=== PATIENT | male | born 1955 | race Caucasian/White ===

== ENCOUNTER → 2020-03-19 | Outpatient (CLI) | payer OTHER ==
[~2020-03-19] MED LIST: ALBUTEROL INH; APAP500 PO; ASPIRIN EC325 M1 PO; BACTRIM DS TAB1 EACH PO; GLUCOPHAGE500 MG PO; KEFLEX500 MG PO; LISINOPRIL10 MG PO; MUCINEX TA600 MG/TA1 PO; XARELTO10 MG PO
== END ==
LOC: M.CT 11:00
PROVIDERS: ATTEND Internal Medicine Cardiovascular Disease
DX: Z13.6 Encounter for screening for cardiovascular disorders (principal)

== ENCOUNTER 2020-07-14 22:58 | Emergency (ER) | payer MEDICARE ==
[~2020-07-14] VITALS: Ht 172.7 cm; Wt 152.0 kg
[~2020-07-14 22:58] MED LIST changes: +COMBIVENT INH; +LIPITOR10 MG PO; +MELOXICAM15 MG PO; +MULTI VITAMIN1 EACH PO; +SINGULAIR 10 MG10 MG PO
[2020-07-14 23:38] LABS: URINE BILIRUBIN NEGATIVE (Negative); URINE BLOOD 3+ (Negative); URINE CLARITY CLOUDY; URINE COLOR RED; URINE GLUCOSE-RANDOM NEGATIVE (Negative); URINE KETONES NEGATIVE (Negative); URINE NITRITE-REFLEX NEGATIVE (Negative); URINE PROTEIN 2+ (Negative); URINE UROBILINOGEN 0.2 E.U./dl (0.2-1.0)
[2020-07-14 23:39] LABS: URINE LEUKOCYTES-REFLEX 2+ (Negative)
[2020-07-15 00:20] LABS: CASTS None Seen /LPF (None Seen); SQUAMOUS 0-3 Few /LPF (0-3); URINE RBC >20 Many /HPF (0-2); URINE WBC-REFLEX >25 Many /HPF (0-5)
[2020-07-15 00:21] LABS: CRYSTALS None Seen /LPF (None Seen)
[2020-07-15] MEDS ORDERED: HYDROCODON-ACE1 EAC8 PO (00:33)
[2020-07-15] MEDS ORDERED: ZOFRAN ODT4 MG PO (00:33)
[2020-07-15] MEDS ORDERED: PYRIDIUM200 MG PO (00:33)
[2020-07-15] MEDS ORDERED: CIPROFLOXACIN500 M1 PO (00:33)
[2020-07-15 00:50] VITALS: BP 112/73
== END 2020-07-15 00:50 | disposition home or self-care (01) ==
LOC: M.ERS 22:58
PROVIDERS: Emergency Medicine
DX: N39.0 Urinary tract infection, site not specified (principal); M19.90 Unspecified osteoarthritis, unspecified site; I10 Essential (primary) hypertension; E11.9 Type 2 diabetes mellitus without complications; E78.00 Pure hypercholesterolemia, unspecified; Z88.0 Allergy status to penicillin; Z79.899 Other long term (current) drug therapy; Z90.49 Acquired absence of other specified parts of digestive tract

== ENCOUNTER → 2020-09-18 | Outpatient (CLI) | payer MEDICARE ==
[~2020-09-18] MED LIST changes: +CIPROFLOXACIN500 M1 PO; +HYDROCODON-ACE1 EAC8 PO; +PYRIDIUM200 MG PO; +ZOFRAN ODT4 MG PO
[2020-09-18 10:47] LABS: CREATININE 1.1 mg/dL (0.6-1.3)
== END ==
LOC: M.CT 03-31 09:59 → M.LAB 09:30
PROVIDERS: ATTEND Internal Medicine Cardiovascular Disease
DX: I71.2 Thoracic aortic aneurysm, without rupture (principal); M47.814 Spondylosis without myelopathy or radiculopathy, thoracic region; I10 Essential (primary) hypertension; R93.1 Abnormal findings on diagnostic imaging of heart and coronary circulation